=== PATIENT | male | born 1960 | race African-American/Black ===

== ENCOUNTER 2018-03-27 04:09 | Inpatient (IN) | payer MEDICAID ==
[~2018-03-27] VITALS: Ht 182.9 cm; Wt 107.5 kg
[~2018-03-27 04:09] MED LIST: CARDIZEM; DIGOXIN; FURO-151; VIC
[2018-03-27] MEDS ORDERED: DILTIAZEM HCL 125 MG in DEXT 5% WATER 100 ML IV ONE (04:45)
[2018-03-27] MEDS ORDERED: DILTIAZEM HCL 5MG/ML 5ML VIAL IV ONE (04:45)
[2018-03-27 05:12] LABS: BASOPHILS % 0.9 % (0.0-2.0); EOSINOPHILS % 3.2 % (0.0-5.0); HEMATOCRIT. 39.3 % (42.0-52.0); HEMOGLOBIN. 12.8 g/dL (14.0-18.0); LYMPHOCYTES % 25.6 % (20.0-50.0); MEAN CORPUSCULAR VOLUME 88.7 fL (80.0-94.0); MEAN PLATELET VOLUME 7.9 fl (7.4-10.4); MONOCYTES % 6.6 % (2.0-8.0); NEUTROPHILS % 63.7 % (40.0-76.0); PLATELET 228 x1000/uL (130-400); RED BLOOD CELL COUNT 4.44 mill/uL (4.7-6.1); RED CELL DISTRIBUTION WIDTH 14.6 % (11.6-14.6)
[2018-03-27] MEDS: DILTIAZEM HCL 125MG in DEXTROSE 5% WATER 125ML IV PRN ×2 (05:13→19:01)
[2018-03-27 05:15] LABS: CHLORIDE 107 mEq/L (98-107)
[2018-03-27] MEDS ORDERED: ONDANSETRON HCL 4MG/2ML INJ IV PRN (09:15)
[2018-03-27] MEDS ORDERED: ACETAMINOPHEN 325MG TABLET PO PRN (09:15)
[2018-03-27] MEDS ORDERED: BENZONATATE 100MG CAPSULE PO PRN (10:15)
[2018-03-27 18:00] VITALS: BP 134/77
[2018-03-27 18:37] VITALS: BP 134/77
[2018-03-27] MEDS: HYDROCODONE/ACETAMINOPHEN 5/325MG TABLET PO PRN (18:47)
[2018-03-27 19:00] VITALS: BP 134/79
[2018-03-27 20:00] VITALS: BP 123/90
[2018-03-27 20:33] LABS: CLARITY URINE CLEAR (CLEAR); COLOR URINE YELLOW (YELLOW); KETONES URINE NEGATIVE (NEGATIVE); LEUKOCYTE ESTERASE URINE NEGATIVE (NEGATIVE); NITRITE URINE NEGATIVE (NEGATIVE); OCCULT BLOOD URINE NEGATIVE (NEGATIVE); PH URINE 6.5 (4.5-8.0); PROTEIN URINE NEGATIVE (NEGATIVE); SPECIFIC GRAVITY URINE 1.008 (1.005-1.030)
[2018-03-27 21:03] LABS: *AMPHETAMINES SCREEN URINE PRESUMTIVE POSITIVE (NEGATIVE); *BARBITURATES SCREEN URINE NEGATIVE (NEGATIVE)
[2018-03-27 21:04] LABS: *BENZODIAZEPINES SCREEN URINE NEGATIVE (NEGATIVE); *COCAINE SCREEN URINE NEGATIVE (NEGATIVE); CANNABINOID URINE SCREEN PRESUMTIVE POSITIVE (NEGATIVE); METHADONE URINE SCREEN NEGATIVE (NEGATIVE); OPIATES URINE SCREEN NEGATIVE (NEGATIVE); PHENCYCLIDINE URINE SCREEN PRESUMTIVE POSITIVE (NEGATIVE)
[2018-03-27 22:00] VITALS: BP 156/82
[2018-03-28] VITALS (16 sets, daily range): BP systolic 101–147; BP diastolic 33–95
[2018-03-28] MEDS: DILTIAZEM HCL 125MG in DEXTROSE 5% WATER 125ML IV PRN (04:13)
[2018-03-28 07:15] LABS: BASOPHILS % 0.5 % (0.0-2.0); EOSINOPHILS % 2.6 % (0.0-5.0); HEMATOCRIT. 39.4 % (42.0-52.0); HEMOGLOBIN. 13.1 g/dL (14.0-18.0); LYMPHOCYTES % 16.7 % (20.0-50.0); MEAN CORPUSCULAR HEMOGLOBIN 29.4 pg (28.0-32.0); MEAN CORPUSCULAR VOLUME 88.7 fL (80.0-94.0); MEAN PLATELET VOLUME 8.5 fl (7.4-10.4); MONOCYTES % 7.5 % (2.0-8.0); NEUTROPHILS % 72.7 % (40.0-76.0); PLATELET 216 x1000/uL (130-400); RED BLOOD CELL COUNT 4.44 mill/uL (4.7-6.1); RED CELL DISTRIBUTION WIDTH 14.5 % (11.6-14.6)
[2018-03-28 07:18] LABS: CHLORIDE 104 mEq/L (98-107)
[2018-03-28] MEDS ORDERED: FUROSEMIDE 40MG/4ML VIAL IVP NR (11:00)
[2018-03-28] MEDS ORDERED: ENOXAPARIN 30MG/0.3ML SYR SUBCUT SCH (11:36)
[2018-03-28] MEDS ORDERED: DILTIAZEM HCL 125 MG in DEXT 5% WATER 100 ML IV SCH (12:00)
[2018-03-28] MEDS: HYDROCODONE/ACETAMINOPHEN 5/325MG TABLET PO PRN ×2 (12:15→21:29)
[2018-03-28] MEDS: AMIODARONE HCL 200 MG TABLET PO SCH ×2 (12:15→16:37)
[2018-03-28] MEDS ORDERED: ENOXAPARIN 100MG/ML SYR SUBCUT NR (13:30)
[2018-03-28] MEDS: DILTIAZEM HCL 60MG TABLET PO SCH ×2 (13:55→21:23)
[2018-03-28] MEDS: DILTIAZEM HCL 125 MG in DEXT 5% WATER 100 ML IV SCH (20:00)
[2018-03-28] MEDS ORDERED: ENOXAPARIN 100MG/ML SYR SUBCUT SCH (21:00)
[2018-03-29] VITALS (12 sets, daily range): BP systolic 102–135; BP diastolic 52–92
[2018-03-29] MEDS ORDERED: ENOXAPARIN 120MG/0.8ML SYR SUBCUT SCH (02:00)
[2018-03-29] MEDS: DILTIAZEM HCL 125 MG in DEXT 5% WATER 100 ML IV SCH ×3 (04:58→21:00)
[2018-03-29] MEDS: DILTIAZEM HCL 60MG TABLET PO SCH ×2 (06:00→13:26)
[2018-03-29] MEDS: ENOXAPARIN 120MG/0.8ML SYR SUBCUT SCH ×2 (06:17→17:41)
[2018-03-29 07:05] LABS: BASOPHILS % 0.4 % (0.0-2.0); EOSINOPHILS % 3.5 % (0.0-5.0); HEMOGLOBIN. 13.1 g/dL (14.0-18.0); LYMPHOCYTES % 24.1 % (20.0-50.0); MEAN CORPUSCULAR HEMOGLOBIN 29.3 pg (28.0-32.0); MEAN CORPUSCULAR VOLUME 89.2 fL (80.0-94.0); MEAN PLATELET VOLUME 8.7 fl (7.4-10.4); MONOCYTES % 8.4 % (2.0-8.0); NEUTROPHILS % 63.6 % (40.0-76.0); PLATELET 228 x1000/uL (130-400); RED BLOOD CELL COUNT 4.49 mill/uL (4.7-6.1); RED CELL DISTRIBUTION WIDTH 14.7 % (11.6-14.6)
[2018-03-29 07:26] LABS: CHLORIDE 102 mEq/L (98-107)
[2018-03-29] MEDS: AMIODARONE HCL 200 MG TABLET PO SCH ×3 (07:55→17:42)
[2018-03-29] MEDS: HYDROCODONE/ACETAMINOPHEN 5/325MG TABLET PO PRN ×2 (13:27→19:58)
[2018-03-29] MEDS: FUROSEMIDE 40MG TABLET PO SCH (17:41)
[2018-03-29] MEDS: DILTIAZEM HCL 90MG TABLET PO SCH (21:54)
[2018-03-30] VITALS (9 sets, daily range): BP systolic 92–132; BP diastolic 39–87
[2018-03-30] MEDS: DILTIAZEM HCL 125 MG in DEXT 5% WATER 100 ML IV SCH (06:06)
[2018-03-30] MEDS: DILTIAZEM HCL 90MG TABLET PO SCH (06:06)
[2018-03-30] MEDS: ENOXAPARIN 120MG/0.8ML SYR SUBCUT SCH (06:07)
[2018-03-30] MEDS: AMIODARONE HCL 200 MG TABLET PO SCH (07:50)
[2018-03-30] MEDS: FUROSEMIDE 40MG TABLET PO SCH (08:00)
[2018-03-30] MEDS ORDERED: APIXABAN 5 MG TABLET PO SCH (10:45)
[2018-03-30] MEDS ORDERED: DILTIAZEM HCL 120MG CAPSULE CD 24HR PO SCH (10:45)
[2018-03-30] MEDS ORDERED: AMIODARONE HCL 200 MG TABLET PO SCH (12:20)
== END 2018-03-30 16:17 | disposition home or self-care (01) | DRG 194 ==
LOC: ER 04:09 → ENRESERV 15:26 → 3WST 17:49
PROVIDERS: ADMIT Internal Medicine; ATTEND Internal Medicine
DX: I11.0 Hypertensive heart disease with heart failure (principal); I42.9 Cardiomyopathy, unspecified; I48.92 Unspecified atrial flutter; I48.91 Unspecified atrial fibrillation; I50.23 Acute on chronic systolic (congestive) heart failure; E66.9 Obesity, unspecified; F15.90 Other stimulant use, unspecified, uncomplicated; F17.200 Nicotine dependence, unspecified, uncomplicated; Z91.19 Patient's noncompliance with other medical treatment and regimen; Z68.32 Body mass index [BMI] 32.0-32.9, adult; Z88.6 Allergy status to analgesic agent
CPT/HCPCS: 36415; 71045; 80048; 80061; 80305; 83036; 83880; 84443; 84484; 93005; 93306; 93970; 96365; 96375; 99291; J1650; J1940; J3490; J7060

== ENCOUNTER 2018-04-25 17:26 | Emergency (ER) | payer MEDICAID ==
[~2018-04-25] VITALS: Ht 182.9 cm; Wt 104.0 kg
[~2018-04-25 17:26] MED LIST changes: -DIGOXIN
[2018-04-25 17:29] VITALS: BP 123/72
== END 2018-04-25 18:05 | disposition left against medical advice (07) ==
LOC: ER 17:26
DX: F16.10 Hallucinogen abuse, uncomplicated (principal); F12.10 Cannabis abuse, uncomplicated; I48.91 Unspecified atrial fibrillation; I11.0 Hypertensive heart disease with heart failure; I50.9 Heart failure, unspecified; E66.9 Obesity, unspecified; Z68.31 Body mass index [BMI] 31.0-31.9, adult; F17.210 Nicotine dependence, cigarettes, uncomplicated
CPT/HCPCS: 99283

== ENCOUNTER 2018-04-25 20:57 | Emergency (ER) | payer MEDICAID ==
[~2018-04-25] VITALS: Ht 180.3 cm; Wt 118.0 kg
[2018-04-25 21:17] VITALS: BP 122/86
== END 2018-04-25 23:34 | disposition left against medical advice (07) ==
LOC: ER 20:57
DX: F16.188 Hallucinogen abuse with other hallucinogen-induced disorder (principal); F12.188 Cannabis abuse with other cannabis-induced disorder; M25.512 Pain in left shoulder; F17.210 Nicotine dependence, cigarettes, uncomplicated
CPT/HCPCS: 99284

== ENCOUNTER 2018-05-04 17:41 | Emergency (ER) | payer MEDICAID ==
[~2018-05-04] VITALS: Ht 182.9 cm; Wt 120.0 kg
[2018-05-04 17:48] VITALS: BP 129/70
== END 2018-05-04 19:45 | disposition left against medical advice (07) ==
LOC: ER 17:41
DX: Z53.21 Procedure and treatment not carried out due to patient leaving prior to being seen by health care provider (principal)

== ENCOUNTER 2018-05-14 19:56 | Emergency (ER) | payer MEDICAID ==
[~2018-05-14] VITALS: Ht 182.9 cm; Wt 97.0 kg
[2018-05-14 20:04] VITALS: BP 143/87
[2018-05-14] MEDS ORDERED: ACETAMINOPHEN 325MG TABLET PO ONE (20:30)
== END 2018-05-14 20:46 | disposition home or self-care (01) ==
LOC: ER 19:56
DX: M25.512 Pain in left shoulder (principal)
CPT/HCPCS: 73030; 99283

== ENCOUNTER 2018-05-22 17:13 | Emergency (ER) | payer MEDICAID ==
[~2018-05-22] VITALS: Ht 177.8 cm; Wt 80.0 kg
[2018-05-22 17:18] VITALS: BP 142/109
== END 2018-05-22 17:34 | disposition left against medical advice (07) ==
LOC: ER 17:26
DX: R41.82 Altered mental status, unspecified (principal); Z53.21 Procedure and treatment not carried out due to patient leaving prior to being seen by health care provider

== ENCOUNTER 2018-07-27 07:44 | Inpatient (IN) | payer MEDICAID ==
[~2018-07-27] VITALS: Ht 177.8 cm; Wt 114.1 kg
[2018-07-27] MEDS ORDERED: NITROGLYCERIN 0.4MG TABLET SL SL PRN (08:45)
[2018-07-27] MEDS ORDERED: CLOPIDOGREL 75MG TABLET PO ONE (08:45)
[2018-07-27 08:58] LABS: BASOPHILS % 0.3 % (0.0-2.0); EOSINOPHILS % 2.5 % (0.0-5.0); HEMOGLOBIN. 13.7 g/dL (14.0-18.0); LYMPHOCYTES % 18.8 % (20.0-50.0); MEAN CORPUSCULAR HEMOGLOBIN 29.2 pg (28.0-32.0); MEAN CORPUSCULAR VOLUME 89.3 fL (80.0-94.0); MEAN PLATELET VOLUME 9.5 fl (7.4-10.4); MONOCYTES % 7.7 % (2.0-8.0); NEUTROPHILS % 70.7 % (40.0-76.0); PLATELET 259 x1000/uL (130-400); RED CELL DISTRIBUTION WIDTH 15.7 % (11.6-14.6)
[2018-07-27] MEDS ORDERED: DILTIAZEM HCL 5MG/ML 5ML VIAL IV ONE (09:00)
[2018-07-27 09:22] LABS: D-DIMER 1.68 mg/L FEU (<0.50); INR 1.1; PARTIAL THROMBOPLASTIN TIME 30.9 sec (23.4-31.0); PROTHROMBIN TIME 11.6 sec (9.6-11.0)
[2018-07-27 09:28] LABS: CHLORIDE 111 mEq/L (98-107)
[2018-07-27 09:32] LABS: DIGOXIN < 0.1 ng/mL (0.9-2.0); ETHANOL BLOOD 12 mg/dL
[2018-07-27] MEDS ORDERED: IPRATROPIUM/ALBUTEROL 0.5-3(2.5)MG/3ML NEB INH PRN (11:00)
[2018-07-27] MEDS ORDERED: FUROSEMIDE 40MG/4ML VIAL IVP ONE (11:00)
[2018-07-27] MEDS ORDERED: CLONIDINE 0.1MG TABLET PO PRN (11:00)
[2018-07-27] MEDS ORDERED: ONDANSETRON HCL 4MG/2ML INJ IV PRN (11:00)
[2018-07-27] MEDS ORDERED: LORAZEPAM 2MG/ML CPJ IV PRN (11:00)
[2018-07-27] MEDS ORDERED: MAGNESIUM/ALUMINUM HYDROXIDE/SIMETHICONE 30ML UDC PO PRN (11:00)
[2018-07-27] MEDS ORDERED: NA PHOS,M-B/NA PHOS,DI-BA ENEMA 118ML PR PRN (11:00)
[2018-07-27] MEDS ORDERED: GUAIFENESIN 200MG/10ML SUGAR FREE UDC PO PRN (11:00)
[2018-07-27] MEDS ORDERED: MORPHINE SULFATE 4 MG/ML CPJ (NOT FOR IM USE) IV PRN (11:00)
[2018-07-27] MEDS ORDERED: ACETAMINOPHEN 325MG TABLET PO PRN (11:00)
[2018-07-27] MEDS ORDERED: DIPHENHYDRAMINE 50MG/ML VIAL IV PRN (11:00)
[2018-07-27] MEDS ORDERED: IOHEXOL-350 100 ML BOTTLE ONE (12:04)
[2018-07-27 13:40] VITALS: BP 147/116
[2018-07-27 14:00] VITALS: BP 140/100
[2018-07-27] MEDS ORDERED: DILTIAZEM HCL 5MG/ML 5ML VIAL IV PRN (14:00)
[2018-07-27] MEDS: HYDROCODONE/ACETAMINOPHEN 5/325MG TABLET PO PRN ×2 (14:08→21:25)
[2018-07-27] MEDS: DOCUSATE SODIUM 100MG CAPSULE PO PRN (14:08)
[2018-07-27] MEDS ORDERED: DIGOXIN 500MCG/2ML AMP IV SCH (14:23)
[2018-07-27] MEDS ORDERED: NITROGLYCERIN OINT 1GM/INCH UDPKT TD NR (14:29)
[2018-07-27] MEDS: DILTIAZEM HCL 60MG TABLET PO SCH ×2 (15:13→18:00)
[2018-07-27 15:23] VITALS: BP 140/100
[2018-07-27] MEDS: LOSARTAN POTASSIUM 50 MG TABLET PO SCH (15:28)
[2018-07-27] MEDS: ENOXAPARIN 120MG/0.8ML SYR SUBCUT SCH (15:49)
[2018-07-27] MEDS ORDERED: FUROSEMIDE 40MG/4ML VIAL IV SCH (17:00)
[2018-07-27 17:12] LABS: *AMPHETAMINES SCREEN URINE NEGATIVE (NEGATIVE); *BARBITURATES SCREEN URINE NEGATIVE (NEGATIVE); *BENZODIAZEPINES SCREEN URINE NEGATIVE (NEGATIVE); *COCAINE SCREEN URINE NEGATIVE (NEGATIVE); CANNABINOID URINE SCREEN NEGATIVE (NEGATIVE); OPIATES URINE SCREEN NEGATIVE (NEGATIVE); PHENCYCLIDINE URINE SCREEN PRESUMTIVE POSITIVE (NEGATIVE)
[2018-07-27 17:13] LABS: METHADONE URINE SCREEN NEGATIVE (NEGATIVE)
[2018-07-27 20:22] VITALS: BP 122/93
[2018-07-27] MEDS: FUROSEMIDE 40MG/4ML VIAL IV SCH (20:32)
[2018-07-28 00:21] VITALS: BP 124/91
[2018-07-28 04:00] VITALS: BP 110/75
[2018-07-28 06:37] LABS: BASOPHILS % 0.5 % (0.0-2.0); EOSINOPHILS % 4.6 % (0.0-5.0); HEMATOCRIT. 38.8 % (42.0-52.0); HEMOGLOBIN. 12.8 g/dL (14.0-18.0); LYMPHOCYTES % 27.1 % (20.0-50.0); MEAN CORPUSCULAR HEMOGLOBIN 29.3 pg (28.0-32.0); MEAN CORPUSCULAR VOLUME 88.8 fL (80.0-94.0); MEAN PLATELET VOLUME 8.7 fl (7.4-10.4); MONOCYTES % 7.5 % (2.0-8.0); NEUTROPHILS % 60.3 % (40.0-76.0); PLATELET 203 x1000/uL (130-400); RED BLOOD CELL COUNT 4.36 mill/uL (4.7-6.1); RED CELL DISTRIBUTION WIDTH 15.3 % (11.6-14.6)
[2018-07-28 06:57] LABS: CHLORIDE 109 mEq/L (98-107)
[2018-07-28] MEDS: DILTIAZEM HCL 60MG TABLET PO SCH ×2 (07:03→07:12)
[2018-07-28] MEDS: ENOXAPARIN 120MG/0.8ML SYR SUBCUT SCH ×2 (07:06→17:21)
[2018-07-28 07:11] LABS: LDL CHOLESTEROL 60 mg/dL (5-100)
[2018-07-28 07:12] LABS: HDL CHOLESTEROL 48 mg/dL (40-59); T4 FREE 1.13 ng/dL (0.76-1.46)
[2018-07-28 08:00] VITALS: BP 130/89
[2018-07-28] MEDS: FUROSEMIDE 40MG/4ML VIAL IV SCH ×2 (08:35→17:19)
[2018-07-28] MEDS: LOSARTAN POTASSIUM 50 MG TABLET PO SCH (08:35)
[2018-07-28] MEDS: HYDROCODONE/ACETAMINOPHEN 5/325MG TABLET PO PRN ×3 (10:09→22:34)
[2018-07-28] MEDS: DOCUSATE SODIUM 100MG CAPSULE PO PRN ×2 (10:12→18:03)
[2018-07-28 12:00] VITALS: BP 141/96
[2018-07-28] MEDS: DILTIAZEM HCL 90MG TABLET PO SCH ×2 (13:00→17:20)
[2018-07-28] MEDS: POTASSIUM CHLORIDE 20MEQ TABLET SR PO SCH (13:16)
[2018-07-28 16:00] VITALS: BP 119/87
[2018-07-28] MEDS ORDERED: DIGOXIN 500MCG/2ML AMP IV SCH (18:00)
[2018-07-28 20:12] VITALS: BP 117/72
[2018-07-29] VITALS: BP 103/64
[2018-07-29 04:00] VITALS: BP 107/83
[2018-07-29] MEDS: DILTIAZEM HCL 90MG TABLET PO SCH ×2 (06:00)
[2018-07-29] MEDS: ENOXAPARIN 120MG/0.8ML SYR SUBCUT SCH (06:01)
[2018-07-29 06:41] LABS: BASOPHILS % 0.5 % (0.0-2.0); EOSINOPHILS % 4.6 % (0.0-5.0); HEMATOCRIT. 37.9 % (42.0-52.0); HEMOGLOBIN. 12.6 g/dL (14.0-18.0); MEAN CORPUSCULAR HEMOGLOBIN 29.5 pg (28.0-32.0); MEAN CORPUSCULAR VOLUME 88.6 fL (80.0-94.0); MEAN PLATELET VOLUME 8.5 fl (7.4-10.4); MONOCYTES % 12.7 % (2.0-8.0); NEUTROPHILS % 52.2 % (40.0-76.0); PLATELET 223 x1000/uL (130-400); RED BLOOD CELL COUNT 4.28 mill/uL (4.7-6.1); RED CELL DISTRIBUTION WIDTH 15.2 % (11.6-14.6)
[2018-07-29 07:52] LABS: CHLORIDE 103 mEq/L (98-107)
[2018-07-29 08:00] VITALS: BP 115/80
[2018-07-29] MEDS: FUROSEMIDE 40MG/4ML VIAL IV SCH (08:19)
[2018-07-29] MEDS: LOSARTAN POTASSIUM 50 MG TABLET PO SCH (08:19)
[2018-07-29] MEDS: POTASSIUM CHLORIDE 20MEQ TABLET SR PO SCH (08:19)
[2018-07-29 10:17] VITALS: BP 18/115
== END 2018-07-29 10:50 | disposition home or self-care (01) | DRG 194 ==
LOC: ER 07:44 → ENRESERV 09:58 → 6WST 12:12 → EDBEDREQ 12:15
PROVIDERS: ADMIT Internal Medicine; ATTEND Internal Medicine
DX: I11.0 Hypertensive heart disease with heart failure (principal); J96.20 Acute and chronic respiratory failure, unspecified whether with hypoxia or hypercapnia; I42.9 Cardiomyopathy, unspecified; I50.23 Acute on chronic systolic (congestive) heart failure; F17.200 Nicotine dependence, unspecified, uncomplicated; R74.0 Nonspecific elevation of levels of transaminase and lactic acid dehydrogenase [LDH]; F19.10 Other psychoactive substance abuse, uncomplicated; I48.91 Unspecified atrial fibrillation; I48.92 Unspecified atrial flutter; Z91.19 Patient's noncompliance with other medical treatment and regimen; Z82.49 Family history of ischemic heart disease and other diseases of the circulatory system; Z88.6 Allergy status to analgesic agent; Z79.899 Other long term (current) drug therapy
CPT/HCPCS: 36415; 71045; 71275; 80048; 80061; 80162; 80305; 80320; 83735; 83880; 84439; 84443; 84484; 85379; 93005; 93306; 96374; 99285; J1160; J1650; J1940; J3490; Q9967; G0480

== ENCOUNTER 2018-09-07 06:46 | Inpatient (IN) | payer MEDICAID ==
[~2018-09-07] VITALS: Ht 177.8 cm; Wt 109.5 kg
[2018-09-07 07:34] LABS: CHLORIDE 110 mEq/L (98-107)
[2018-09-07] MEDS ORDERED: ENALAPRIL 2.5MG/2ML VIAL 2ML IV ONE (08:45)
[2018-09-07] MEDS ORDERED: FUROSEMIDE 40MG/4ML VIAL IVP ONE (08:45)
[2018-09-07 09:20] LABS: BASOPHILS % 0.6 % (0.0-2.0); EOSINOPHILS % 3.5 % (0.0-5.0); HEMATOCRIT. 40.6 % (42.0-52.0); HEMOGLOBIN. 13.2 g/dL (14.0-18.0); LYMPHOCYTES % 29.3 % (20.0-50.0); MEAN CORPUSCULAR HEMOGLOBIN 28.9 pg (28.0-32.0); MEAN PLATELET VOLUME 10.1 fl (7.4-10.4); MONOCYTES % 9.1 % (2.0-8.0); NEUTROPHILS % 57.5 % (40.0-76.0); PLATELET 113 x1000/uL (130-400); RED BLOOD CELL COUNT 4.56 mill/uL (4.7-6.1); RED CELL DISTRIBUTION WIDTH 15.3 % (11.6-14.6)
[2018-09-07] MEDS ORDERED: ONDANSETRON HCL 4MG/2ML INJ IV PRN (11:30)
[2018-09-07] MEDS ORDERED: DOCUSATE SODIUM 100MG CAPSULE PO PRN (11:30)
[2018-09-07] MEDS ORDERED: CLONIDINE 0.1MG TABLET PO PRN ×2 (11:30→14:00)
[2018-09-07] MEDS ORDERED: GUAIFENESIN 200MG/10ML SUGAR FREE UDC PO PRN (11:30)
[2018-09-07] MEDS ORDERED: ENOXAPARIN 40MG/0.4ML SYR SUBCUT SCH (11:30)
[2018-09-07] MEDS ORDERED: IPRATROPIUM/ALBUTEROL 0.5-3(2.5)MG/3ML NEB INH PRN (11:30)
[2018-09-07] MEDS ORDERED: MAGNESIUM/ALUMINUM HYDROXIDE/SIMETHICONE 30ML UDC PO PRN (11:30)
[2018-09-07] MEDS ORDERED: ACETAMINOPHEN 325MG TABLET PO PRN (11:30)
[2018-09-07 12:17] LABS: PHOSPHORUS 3.5 mg/dL (2.5-4.9)
[2018-09-07 13:38] VITALS: BP 140/107
[2018-09-07] MEDS ORDERED: CLONIDINE 0.2MG TABLET PO PRN (14:00)
[2018-09-07] MEDS ORDERED: DILTIAZEM HCL 5MG/ML 5ML VIAL IV PRN (14:00)
[2018-09-07] MEDS: POTASSIUM CHLORIDE 20MEQ TABLET SR PO SCH ×2 (14:34→21:33)
[2018-09-07] MEDS: LOSARTAN POTASSIUM 25 MG TABLET PO SCH ×2 (14:34→21:33)
[2018-09-07] MEDS: HYDROCODONE/ACETAMINOPHEN 5/325MG TABLET PO PRN ×2 (14:41→21:33)
[2018-09-07 16:00] VITALS: BP 154/99
[2018-09-07 16:33] VITALS: BP 142/110
[2018-09-07 16:34] LABS: INR 1.2
[2018-09-07 17:54] LABS: CREATINE KINASE MB FRACTION 3.1 ng/mL (0.5-3.6)
[2018-09-07] MEDS: DILTIAZEM HCL 60MG TABLET PO SCH (18:53)
[2018-09-07] MEDS: FUROSEMIDE 40MG/4ML VIAL IV SCH (18:54)
[2018-09-07] MEDS: ENOXAPARIN 100MG/ML SYR SUBCUT SCH (18:56)
[2018-09-07 20:00] VITALS: BP 107/75
[2018-09-07 20:17] LABS: *AMPHETAMINES SCREEN URINE PRESUMTIVE POSITIVE (NEGATIVE); *BARBITURATES SCREEN URINE NEGATIVE (NEGATIVE); *BENZODIAZEPINES SCREEN URINE NEGATIVE (NEGATIVE); *COCAINE SCREEN URINE PRESUMTIVE POSITIVE (NEGATIVE); METHADONE URINE SCREEN NEGATIVE (NEGATIVE)
[2018-09-07 20:18] LABS: CANNABINOID URINE SCREEN PRESUMTIVE POSITIVE (NEGATIVE); OPIATES URINE SCREEN PRESUMTIVE POSITIVE (NEGATIVE); PHENCYCLIDINE URINE SCREEN PRESUMTIVE POSITIVE (NEGATIVE)
[2018-09-07] MEDS ORDERED: ENOXAPARIN 30MG/0.3ML SYR SUBCUT SCH (21:00)
[2018-09-08] VITALS: BP 114/75
[2018-09-08] MEDS: DILTIAZEM HCL 60MG TABLET PO SCH ×2 (00:02→06:13)
[2018-09-08 04:00] VITALS: BP 121/77
[2018-09-08] MEDS: HYDROCODONE/ACETAMINOPHEN 5/325MG TABLET PO PRN ×3 (04:10→22:31)
[2018-09-08] MEDS: FUROSEMIDE 40MG/4ML VIAL IV SCH ×2 (06:16→17:22)
[2018-09-08 07:02] LABS: CHLORIDE 106 mEq/L (98-107)
[2018-09-08 07:03] LABS: BASOPHILS % 0.7 % (0.0-2.0); HEMATOCRIT. 38.6 % (42.0-52.0); HEMOGLOBIN. 12.9 g/dL (14.0-18.0); LYMPHOCYTES % 34.5 % (20.0-50.0); MEAN CORPUSCULAR HEMOGLOBIN 29.4 pg (28.0-32.0); MEAN CORPUSCULAR VOLUME 87.9 fL (80.0-94.0); MEAN PLATELET VOLUME 9.6 fl (7.4-10.4); MONOCYTES % 8.4 % (2.0-8.0); NEUTROPHILS % 52.4 % (40.0-76.0); PLATELET 138 x1000/uL (130-400); RED BLOOD CELL COUNT 4.39 mill/uL (4.7-6.1); RED CELL DISTRIBUTION WIDTH 15.1 % (11.6-14.6)
[2018-09-08 07:18] LABS: CREATINE KINASE 157 IU/L (39-308); CREATINE KINASE MB FRACTION 1.8 ng/mL (0.5-3.6)
[2018-09-08 07:20] LABS: LDL CHOLESTEROL 70 mg/dL (5-100)
[2018-09-08 07:25] LABS: HDL CHOLESTEROL 60 mg/dL (40-59)
[2018-09-08 08:16] VITALS: BP 110/69
[2018-09-08] MEDS: LOSARTAN POTASSIUM 25 MG TABLET PO SCH ×2 (08:25→21:39)
[2018-09-08] MEDS: POTASSIUM CHLORIDE 20MEQ TABLET SR PO SCH ×2 (08:25→21:39)
[2018-09-08] MEDS: ENOXAPARIN 100MG/ML SYR SUBCUT SCH ×2 (08:27→21:40)
[2018-09-08] MEDS ORDERED: FUROSEMIDE 40MG/4ML VIAL IV SCH (09:00)
[2018-09-08] MEDS ORDERED: POTASSIUM CHLORIDE 20MEQ TABLET SR PO NR (11:45)
[2018-09-08 12:00] VITALS: BP 106/78
[2018-09-08] MEDS: DILTIAZEM HCL 90MG TABLET PO SCH ×2 (12:00→17:22)
[2018-09-08 16:00] VITALS: BP 137/90
[2018-09-08 20:00] VITALS: BP 126/89
[2018-09-09] VITALS: BP 122/84
[2018-09-09] MEDS: DILTIAZEM HCL 90MG TABLET PO SCH ×5 (00:48→23:56)
[2018-09-09 04:00] VITALS: BP 97/64
[2018-09-09 06:31] VITALS: BP 131/87
[2018-09-09] MEDS: FUROSEMIDE 40MG/4ML VIAL IV SCH ×2 (06:33→17:35)
[2018-09-09 08:00] VITALS: BP 114/64
[2018-09-09] MEDS: LOSARTAN POTASSIUM 25 MG TABLET PO SCH ×2 (09:17→21:11)
[2018-09-09] MEDS: POTASSIUM CHLORIDE 20MEQ TABLET SR PO SCH ×2 (09:17→21:11)
[2018-09-09] MEDS: ENOXAPARIN 100MG/ML SYR SUBCUT SCH (09:19)
[2018-09-09 11:51] LABS: BASOPHILS % 0.8 % (0.0-2.0); EOSINOPHILS % 4.1 % (0.0-5.0); HEMATOCRIT. 41.1 % (42.0-52.0); HEMOGLOBIN. 13.4 g/dL (14.0-18.0); MEAN CORPUSCULAR VOLUME 88.9 fL (80.0-94.0); MONOCYTES % 9.3 % (2.0-8.0); NEUTROPHILS % 59.8 % (40.0-76.0); RED BLOOD CELL COUNT 4.63 mill/uL (4.7-6.1); RED CELL DISTRIBUTION WIDTH 15.1 % (11.6-14.6)
[2018-09-09 12:01] LABS: CHLORIDE 104 mEq/L (98-107)
[2018-09-09 12:53] LABS: PLATELET 130 x1000/uL (130-400)
[2018-09-09] MEDS ORDERED: ENOXAPARIN 120MG/0.8ML SYR SUBCUT SCH (15:26)
[2018-09-09 16:00] VITALS: BP 108/82
[2018-09-09 20:00] VITALS: BP 132/89
[2018-09-09] MEDS: ENOXAPARIN 120MG/0.8ML SYR SUBCUT SCH ×2 (21:00→21:11)
[2018-09-09] MEDS: HYDROCODONE/ACETAMINOPHEN 5/325MG TABLET PO PRN (21:12)
[2018-09-10] VITALS: BP 105/76
[2018-09-10 04:00] VITALS: BP 122/85
[2018-09-10] MEDS: DILTIAZEM HCL 90MG TABLET PO SCH ×2 (06:00→12:00)
[2018-09-10] MEDS: FUROSEMIDE 40MG/4ML VIAL IV SCH (06:37)
[2018-09-10 08:00] VITALS: BP 108/65
[2018-09-10] MEDS: ENOXAPARIN 120MG/0.8ML SYR SUBCUT SCH ×2 (09:00→09:33)
[2018-09-10] MEDS: LOSARTAN POTASSIUM 25 MG TABLET PO SCH (09:00)
[2018-09-10] MEDS: POTASSIUM CHLORIDE 20MEQ TABLET SR PO SCH (09:32)
[2018-09-10] MEDS: HYDROCODONE/ACETAMINOPHEN 5/325MG TABLET PO PRN (11:30)
[2018-09-10 12:00] VITALS: BP 111/75
[2018-09-10 14:08] VITALS: BP 111/76
[2018-09-10 14:11] VITALS: BP 111/76
== END 2018-09-10 14:30 | disposition home or self-care (01) | DRG 194 ==
LOC: ER 06:46 → 5WST 10:16 → EDBEDREQ 10:22 → EDBEDREQTM 10:22 → ENRESERV 12:26
PROVIDERS: ADMIT Internal Medicine; ATTEND Internal Medicine
DX: I11.0 Hypertensive heart disease with heart failure (principal); D69.6 Thrombocytopenia, unspecified; E87.8 Other disorders of electrolyte and fluid balance, not elsewhere classified; I27.20 Pulmonary hypertension, unspecified; I08.1 Rheumatic disorders of both mitral and tricuspid valves; I48.92 Unspecified atrial flutter; I50.33 Acute on chronic diastolic (congestive) heart failure; D64.9 Anemia, unspecified; I42.0 Dilated cardiomyopathy; F10.10 Alcohol abuse, uncomplicated; F12.10 Cannabis abuse, uncomplicated; F14.10 Cocaine abuse, uncomplicated; F17.200 Nicotine dependence, unspecified, uncomplicated; I50.23 Acute on chronic systolic (congestive) heart failure; Z91.19 Patient's noncompliance with other medical treatment and regimen; Z88.6 Allergy status to analgesic agent; Z68.34 Body mass index [BMI] 34.0-34.9, adult
CPT/HCPCS: 36415; 71045; 80048; 80061; 80305; 82550; 82553; 83735; 83880; 84100; 84443; 84484; 85379; 93005; 93970; 96374; 99285; J1650; J1940; J3490

== ENCOUNTER 2018-10-24 08:42 | Inpatient (IN) | payer MEDICAID ==
[~2018-10-24] VITALS: Ht 177.8 cm; Wt 104.3 kg
[~2018-10-24 08:42] MED LIST changes: -CARDIZEM
[2018-10-24] MEDS ORDERED: ALBUTEROL (0.083%) 2.5MG/3ML NEB HHN STA (09:03)
[2018-10-24] MEDS ORDERED: IPRATROPIUM BROMIDE (0.02%) 0.5MG/2.5ML NEB HHN STA (09:03)
[2018-10-24] MEDS ORDERED: METHYLPREDNISOLONE SOD SUCC 125 MG/2 ML VIAL IV STA (09:03)
[2018-10-24 09:27] LABS: CHLORIDE 104 mEq/L (98-107)
[2018-10-24 09:30] LABS: BASOPHILS % 0.5 % (0.0-2.0); EOSINOPHILS % 1.5 % (0.0-5.0); HEMATOCRIT. 38.5 % (42.0-52.0); HEMOGLOBIN. 12.8 g/dL (14.0-18.0); LYMPHOCYTES % 11.7 % (20.0-50.0); MEAN CORPUSCULAR HEMOGLOBIN 29.1 pg (28.0-32.0); MEAN CORPUSCULAR VOLUME 87.3 fL (80.0-94.0); MEAN PLATELET VOLUME 8.5 fl (7.4-10.4); MONOCYTES % 5.5 % (2.0-8.0); NEUTROPHILS % 80.8 % (40.0-76.0); PLATELET 190 x1000/uL (130-400); RED BLOOD CELL COUNT 4.41 mill/uL (4.7-6.1); RED CELL DISTRIBUTION WIDTH 15.9 % (11.6-14.6)
[2018-10-24] MEDS ORDERED: DILTIAZEM HCL 5MG/ML 5ML VIAL IV ONE (09:30)
[2018-10-24] MEDS ORDERED: DILTIAZEM HCL 60MG TABLET PO ONE (10:45)
[2018-10-24 12:00] VITALS: BP 130/96
[2018-10-24] MEDS ORDERED: ONDANSETRON HCL 4MG/2ML INJ IV PRN (13:45)
[2018-10-24] MEDS ORDERED: DIPHENHYDRAMINE 50MG/ML VIAL IV PRN (13:45)
[2018-10-24] MEDS ORDERED: MAGNESIUM/ALUMINUM HYDROXIDE/SIMETHICONE 30ML UDC PO PRN (13:45)
[2018-10-24] MEDS ORDERED: ACETAMINOPHEN 325MG TABLET PO PRN (13:45)
[2018-10-24] MEDS ORDERED: CLONIDINE 0.1MG TABLET PO PRN (13:45)
[2018-10-24] MEDS ORDERED: GUAIFENESIN 200MG/10ML SUGAR FREE UDC PO PRN (13:45)
[2018-10-24] MEDS ORDERED: DOCUSATE SODIUM 100MG CAPSULE PO PRN (13:45)
[2018-10-24] MEDS ORDERED: IPRATROPIUM/ALBUTEROL 0.5-3(2.5)MG/3ML NEB INH PRN (13:45)
[2018-10-24] MEDS ORDERED: DIGO125T82 MT (13:52)
[2018-10-24] MEDS ORDERED: DILT120C88 MT (13:52)
[2018-10-24] MEDS ORDERED: POTA20TA82 MT (13:52)
[2018-10-24] MEDS ORDERED: DEXTROSE 50% WATER 50ML SYRINGE IV PRN (14:00)
[2018-10-24] MEDS ORDERED: ENOXAPARIN 40MG/0.4ML SYR SUBCUT SCH (14:00)
[2018-10-24 14:07] VITALS: BP 130/96
[2018-10-24] MEDS ORDERED: DILTIAZEM HCL 5MG/ML 5ML VIAL IV PRN (15:00)
[2018-10-24] MEDS ORDERED: DIGOXIN 500MCG/2ML AMP IV NR (15:00)
[2018-10-24] MEDS: LOSARTAN POTASSIUM 25 MG TABLET PO SCH (15:00)
[2018-10-24 16:00] VITALS: BP 103/55
[2018-10-24 16:06] LABS: INR 1.1; PROTHROMBIN TIME 11.5 sec (9.6-11.0)
[2018-10-24 16:15] LABS: PHOSPHORUS 1.7 mg/dL (2.5-4.9)
[2018-10-24 16:20] LABS: CREATINE KINASE MB FRACTION 1.6 ng/mL (0.5-3.6)
[2018-10-24] MEDS: FUROSEMIDE 40MG/4ML VIAL IVP SCH ×3 (16:53→17:15)
[2018-10-24] MEDS: ENOXAPARIN 100MG/ML SYR SUBCUT SCH (16:54)
[2018-10-24] MEDS: BLOOD SUGAR DIAGNOSTIC STRIP TEST SCH ×2 (16:56→20:58)
[2018-10-24] MEDS: INSULIN LISPRO 100 UNITS/ML SUBCUT SCH ×2 (18:16→20:58)
[2018-10-24 19:48] LABS: *AMPHETAMINES SCREEN URINE PRESUMTIVE POSITIVE (NEGATIVE); *BARBITURATES SCREEN URINE NEGATIVE (NEGATIVE); *BENZODIAZEPINES SCREEN URINE NEGATIVE (NEGATIVE); *COCAINE SCREEN URINE NEGATIVE (NEGATIVE); METHADONE URINE SCREEN NEGATIVE (NEGATIVE)
[2018-10-24 19:49] LABS: CANNABINOID URINE SCREEN PRESUMTIVE POSITIVE (NEGATIVE); OPIATES URINE SCREEN NEGATIVE (NEGATIVE); PHENCYCLIDINE URINE SCREEN PRESUMTIVE POSITIVE (NEGATIVE)
[2018-10-24 20:00] VITALS: BP 113/73
[2018-10-24] MEDS: HYDRALAZINE HCL 25MG TABLET PO SCH (21:48)
[2018-10-24] MEDS: DILTIAZEM HCL 60MG TABLET PO SCH (21:49)
[2018-10-24 23:48] LABS: CREATINE KINASE MB FRACTION 1.5 ng/mL (0.5-3.6)
[2018-10-25] VITALS: BP 125/77
[2018-10-25 04:00] VITALS: BP 116/75
[2018-10-25] MEDS: HYDRALAZINE HCL 25MG TABLET PO SCH ×2 (06:27→14:51)
[2018-10-25] MEDS: FUROSEMIDE 40MG/4ML VIAL IVP SCH ×2 (06:27→18:07)
[2018-10-25] MEDS: DILTIAZEM HCL 60MG TABLET PO SCH (06:27)
[2018-10-25] MEDS: ENOXAPARIN 100MG/ML SYR SUBCUT SCH ×2 (06:29→18:08)
[2018-10-25] MEDS: INSULIN LISPRO 100 UNITS/ML SUBCUT SCH ×3 (06:42→17:15)
[2018-10-25] MEDS: BLOOD SUGAR DIAGNOSTIC STRIP TEST SCH ×3 (06:42→16:45)
[2018-10-25 08:00] VITALS: BP 123/88
[2018-10-25] MEDS: LOSARTAN POTASSIUM 25 MG TABLET PO SCH (08:32)
[2018-10-25 08:55] LABS: HEMATOCRIT. 41.1 % (42.0-52.0); HEMOGLOBIN. 13.6 g/dL (14.0-18.0); MEAN CORPUSCULAR HEMOGLOBIN 29.1 pg (28.0-32.0); MEAN CORPUSCULAR VOLUME 87.7 fL (80.0-94.0); MEAN PLATELET VOLUME 8.5 fl (7.4-10.4); PLATELET 230 x1000/uL (130-400); RED BLOOD CELL COUNT 4.69 mill/uL (4.7-6.1); RED CELL DISTRIBUTION WIDTH 15.9 % (11.6-14.6)
[2018-10-25 09:11] LABS: CHLORIDE 100 mEq/L (98-107)
[2018-10-25 09:18] LABS: LDL CHOLESTEROL 73 mg/dL (5-100)
[2018-10-25 09:19] LABS: HDL CHOLESTEROL 72 mg/dL (40-59)
[2018-10-25 12:00] VITALS: BP 127/93
[2018-10-25] MEDS ORDERED: POTASSIUM CHLORIDE 20MEQ TABLET SR PO SCH (14:15)
[2018-10-25 14:27] LABS: PLATELET ESTIMATE NORMAL
[2018-10-25] MEDS ORDERED: DILTIAZEM HCL 90MG TABLET PO SCH (18:00)
== END 2018-10-25 18:35 | disposition left against medical advice (07) | DRG 194 ==
LOC: ER 09:09 → 5WST 12:03 → ENRESERV 12:16
PROVIDERS: ADMIT Internal Medicine; ATTEND Internal Medicine
DX: I11.0 Hypertensive heart disease with heart failure (principal); I27.20 Pulmonary hypertension, unspecified; I42.0 Dilated cardiomyopathy; I08.1 Rheumatic disorders of both mitral and tricuspid valves; I50.1 Left ventricular failure, unspecified; J44.9 Chronic obstructive pulmonary disease, unspecified; R73.9 Hyperglycemia, unspecified; D64.9 Anemia, unspecified; I48.92 Unspecified atrial flutter; F19.10 Other psychoactive substance abuse, uncomplicated; F10.10 Alcohol abuse, uncomplicated; F12.90 Cannabis use, unspecified, uncomplicated; F17.210 Nicotine dependence, cigarettes, uncomplicated; I48.91 Unspecified atrial fibrillation; Z88.6 Allergy status to analgesic agent; Z91.19 Patient's noncompliance with other medical treatment and regimen; Z79.1 Long term (current) use of non-steroidal anti-inflammatories (NSAID); Z79.899 Other long term (current) drug therapy
CPT/HCPCS: 36415; 71045; 80048; 80061; 80305; 82550; 82553; 82962; 83735; 83880; 84100; 84443; 84484; 93005; 93970; 94644; 96374; 96375; 97162; 97166; 99285; J1160; J1650; J1815; J1940; J2930; J3490; J7611

== ENCOUNTER 2019-07-21 14:07 | Emergency (ER) | payer MEDICAID ==
[~2019-07-21] VITALS: Ht 177.8 cm; Wt 113.0 kg
[~2019-07-21 14:07] MED LIST changes: +DIGO125T80 MT; +DILT120C88 MT; +POTA20TA82 MT
[2019-07-21] MEDS ORDERED: TETANUS, DIPHTHERIA, PERTUSSIS VAC/PF 0.5ML (>7YR OLD) IM ONE (14:45)
[2019-07-21] MEDS ORDERED: ACETAMINOPHEN 325MG TABLET PO ONE (14:45)
[2019-07-21] MEDS ORDERED: BACITRACIN ZINC OINT UDPKT TOP ONE (15:15)
[2019-07-21] MEDS ORDERED: LIDOCAINE HCL/PF 1% 10 MG/ML 5ML VIAL IJ ONE (15:15)
[2019-07-21 15:54] LABS: CHLORIDE 101 mEq/L (98-107)
[2019-07-21 15:56] LABS: BASOPHILS % 0.7 % (0.0-2.0); EOSINOPHILS % 1.9 % (0.0-5.0); HEMATOCRIT. 49.2 % (42.0-52.0); HEMOGLOBIN. 16.4 g/dL (14.0-18.0); LYMPHOCYTES % 16.2 % (20.0-50.0); MEAN CORPUSCULAR HEMOGLOBIN 28.5 pg (28.0-32.0); MEAN CORPUSCULAR VOLUME 85.5 fL (80.0-94.0); MONOCYTES % 6.8 % (2.0-8.0); NEUTROPHILS % 74.4 % (40.0-76.0); PLATELET 264 x1000/uL (130-400); RED BLOOD CELL COUNT 5.75 mill/uL (4.7-6.1); RED CELL DISTRIBUTION WIDTH 17.7 % (11.6-14.6)
[2019-07-21 15:57] LABS: ETHANOL BLOOD 74 mg/dL
[2019-07-21 19:00] VITALS: BP 145/93
== END 2019-07-21 19:05 | disposition home or self-care (01) ==
LOC: ER 14:16
DX: S01.81XA Laceration without foreign body of other part of head, initial encounter (principal); W18.39XA Other fall on same level, initial encounter; Y93.89 Activity, other specified; Y92.89 Other specified places as the place of occurrence of the external cause; Y99.8 Other external cause status; F10.129 Alcohol abuse with intoxication, unspecified; Y90.3 Blood alcohol level of 60-79 mg/100 ml; I11.0 Hypertensive heart disease with heart failure; I50.9 Heart failure, unspecified; J44.9 Chronic obstructive pulmonary disease, unspecified; F15.10 Other stimulant abuse, uncomplicated; Z79.899 Other long term (current) drug therapy; Z88.6 Allergy status to analgesic agent
CPT/HCPCS: 12016; 36415; 70450; 70486; 80053; 80320; 83880; 84484; 85025; 90471; 90715; 93005; 99285; J3490; G0480

== ENCOUNTER 2019-08-03 10:04 | Emergency (ER) | payer MEDICAID ==
[~2019-08-03] VITALS: Ht 177.8 cm; Wt 116.0 kg
[2019-08-03 10:23] VITALS: BP 129/67
[2019-08-03] MEDS ORDERED: BACITRACIN ZINC OINT UDPKT TOP ONE (11:15)
== END 2019-08-03 11:27 | disposition home or self-care (01) ==
LOC: ER 10:04
DX: S01.81XD Laceration without foreign body of other part of head, subsequent encounter (principal); X58.XXXD Exposure to other specified factors, subsequent encounter; I11.0 Hypertensive heart disease with heart failure; I50.9 Heart failure, unspecified; J44.9 Chronic obstructive pulmonary disease, unspecified; F15.10 Other stimulant abuse, uncomplicated; Z79.899 Other long term (current) drug therapy; Z88.6 Allergy status to analgesic agent
CPT/HCPCS: 99281

== ENCOUNTER 2019-10-24 18:16 | Emergency (ER) | payer MEDICAID ==
[~2019-10-24] VITALS: Ht 185.4 cm; Wt 145.0 kg
[2019-10-24 18:23] VITALS: BP 126/86
== END 2019-10-24 19:08 | disposition left against medical advice (07) ==
LOC: ER 18:16
DX: R41.82 Altered mental status, unspecified (principal); Z53.21 Procedure and treatment not carried out due to patient leaving prior to being seen by health care provider

== ENCOUNTER 2019-10-25 00:51 | Emergency (ER) | payer MEDICAID ==
[~2019-10-25] VITALS: Ht 165.1 cm; Wt 91.0 kg
[2019-10-25] MEDS ORDERED: SODIUM CHLORIDE 0.9% 1,000 ML IV ONE (01:24)
[2019-10-25] MEDS ORDERED: ONDANSETRON HCL 4MG/2ML INJ IV STA (01:24)
[2019-10-25] MEDS ORDERED: OLANZAPINE 10 MG/VIAL IM ONE (01:45)
[2019-10-25 02:16] LABS: CHLORIDE 109 mEq/L (98-107)
[2019-10-25 02:20] LABS: ETHANOL BLOOD 23 mg/dL
[2019-10-25 03:19] LABS: CLARITY URINE CLEAR (CLEAR); COLOR URINE YELLOW (YELLOW); KETONES URINE TRACE (NEGATIVE); LEUKOCYTE ESTERASE URINE NEGATIVE (NEGATIVE); NITRITE URINE NEGATIVE (NEGATIVE); OCCULT BLOOD URINE NEGATIVE (NEGATIVE); PROTEIN URINE TRACE (NEGATIVE); SPECIFIC GRAVITY URINE 1.026 (1.005-1.030); UROBILINOGEN URINE 0.2 E.U./dL (0.2-1.0)
[2019-10-25 03:44] LABS: *AMPHETAMINES SCREEN URINE NEGATIVE (NEGATIVE); *BARBITURATES SCREEN URINE NEGATIVE (NEGATIVE); *BENZODIAZEPINES SCREEN URINE NEGATIVE (NEGATIVE); *COCAINE SCREEN URINE NEGATIVE (NEGATIVE); METHADONE URINE SCREEN NEGATIVE (NEGATIVE)
[2019-10-25 03:45] LABS: CANNABINOID URINE SCREEN NEGATIVE (NEGATIVE); OPIATES URINE SCREEN NEGATIVE (NEGATIVE); PHENCYCLIDINE URINE SCREEN PRESUMTIVE POSITIVE (NEGATIVE)
[2019-10-25 04:04] LABS: BASOPHILS % 0.2 % (0.0-2.0); EOSINOPHILS % 1.3 % (0.0-5.0); HEMATOCRIT. 41.4 % (42.0-52.0); LYMPHOCYTES % 12.4 % (20.0-50.0); MEAN CORPUSCULAR HEMOGLOBIN 30.4 pg (28.0-32.0); MEAN CORPUSCULAR VOLUME 89.8 fL (80.0-94.0); MEAN PLATELET VOLUME 9.7 fl (7.4-10.4); MONOCYTES % 6.3 % (2.0-8.0); NEUTROPHILS % 79.8 % (40.0-76.0); PLATELET 266 x1000/uL (130-400); RED BLOOD CELL COUNT 4.61 mill/uL (4.7-6.1); RED CELL DISTRIBUTION WIDTH 15.5 % (11.6-14.6)
[2019-10-25 07:34] VITALS: BP 109/63
== END 2019-10-25 08:45 | disposition home or self-care (01) ==
LOC: ER 00:51
DX: F16.188 Hallucinogen abuse with other hallucinogen-induced disorder (principal); F15.10 Other stimulant abuse, uncomplicated; R45.1 Restlessness and agitation; Z78.1 Physical restraint status; I11.0 Hypertensive heart disease with heart failure; I50.9 Heart failure, unspecified; J44.9 Chronic obstructive pulmonary disease, unspecified
CPT/HCPCS: 36415; 71045; 80053; 80305; 80320; 81003; 82140; 85025; 96361; 96372; 96374; 99285; J2405; J3490; J7030; G0480

== ENCOUNTER 2020-02-08 21:08 | Emergency (ER) | payer MEDICAID ==
[~2020-02-08] VITALS: Ht 182.9 cm; Wt 137.0 kg
[2020-02-08] MEDS: NALOXONE HCL 1 MG/ML 2ML VIAL IV ONE (23:11)
[2020-02-08] MEDS: ONDANSETRON HCL 4MG/2ML INJ IV ONE (23:11)
[2020-02-08 23:47] LABS: BASOPHILS % 0.4 % (0.0-2.0); EOSINOPHILS % 1.9 % (0.0-5.0); HEMATOCRIT. 41.9 % (42.0-52.0); HEMOGLOBIN. 13.9 g/dL (14.0-18.0); LYMPHOCYTES % 9.8 % (20.0-50.0); MEAN CORPUSCULAR HEMOGLOBIN 29.2 pg (28.0-32.0); MEAN CORPUSCULAR VOLUME 88.1 fL (80.0-94.0); MEAN PLATELET VOLUME 9.1 fl (7.4-10.4); MONOCYTES % 5.7 % (2.0-8.0); NEUTROPHILS % 82.2 % (40.0-76.0); PLATELET 219 x1000/uL (130-400); RED BLOOD CELL COUNT 4.76 mill/uL (4.7-6.1); RED CELL DISTRIBUTION WIDTH 14.5 % (11.6-14.6)
[2020-02-09 00:10] LABS: CHLORIDE 106 mEq/L (98-107); ETHANOL BLOOD < 10 mg/dL
[2020-02-09 02:21] VITALS: BP 129/69
== END 2020-02-09 02:21 | disposition home or self-care (01) ==
LOC: ER 21:08
DX: T65.91XA Toxic effect of unspecified substance, accidental (unintentional), initial encounter (principal); F12.10 Cannabis abuse, uncomplicated; F17.290 Nicotine dependence, other tobacco product, uncomplicated; Z79.899 Other long term (current) drug therapy; Z88.8 Allergy status to other drugs, medicaments and biological substances; Y92.89 Other specified places as the place of occurrence of the external cause
CPT/HCPCS: 36415; 70486; 71045; 80053; 80320; 83880; 84484; 85025; 93005; 96374; 96375; 99285; 99406; J2310; J2405; G0480

== ENCOUNTER 2020-03-03 17:17 | Emergency (ER) | payer MEDICAID ==
[~2020-03-03] VITALS: Ht 177.8 cm; Wt 113.6 kg
[2020-03-03] MEDS ORDERED: METHYLPREDNISOLONE SOD SUCC 125 MG/2 ML VIAL IV ONE (18:15)
[2020-03-03] MEDS ORDERED: CLINDAMYCIN 600 MG in DEXTROSE 5% WATER 50 ML IV ONE (18:15)
[2020-03-03] MEDS ORDERED: CLINDAMYCIN 600MG PREMIX 50 ML IV SCH (18:30)
[2020-03-03 19:37] LABS: BASOPHILS % 0.8 % (0.0-2.0); EOSINOPHILS % 1.3 % (0.0-5.0); HEMATOCRIT. 43.4 % (42.0-52.0); HEMOGLOBIN. 14.7 g/dL (14.0-18.0); LYMPHOCYTES % 8.4 % (20.0-50.0); MEAN CORPUSCULAR HEMOGLOBIN 28.9 pg (28.0-32.0); MEAN CORPUSCULAR VOLUME 85.6 fL (80.0-94.0); MEAN PLATELET VOLUME 9.3 fl (7.4-10.4); MONOCYTES % 7.4 % (2.0-8.0); NEUTROPHILS % 82.1 % (40.0-76.0); PLATELET 389 x1000/uL (130-400); RED BLOOD CELL COUNT 5.07 mill/uL (4.7-6.1); RED CELL DISTRIBUTION WIDTH 15.1 % (11.6-14.6)
[2020-03-03] MEDS ORDERED: ACETAMINOPHEN 325MG TABLET PO ONE (20:45)
[2020-03-03 21:47] LABS: CHLORIDE 99 mEq/L (98-107)
[2020-03-04] MEDS ORDERED: IOHEXOL-300 100 ML BOTTLE ONE (00:28)
[2020-03-04] MEDS ORDERED: PEN G BENZ/PEN G PROCAINE CR 1.2 MMU/2 ML IM ONE (01:45)
[2020-03-04 02:57] VITALS: BP 128/84
== END 2020-03-04 04:28 | disposition home or self-care (01) ==
LOC: ER 17:17
DX: R07.0 Pain in throat (principal)
CPT/HCPCS: 36415; 70491; 80048; 85025; 87430; 87635; 96365; 96366; 96372; 96375; 99285; J0558; J2930; J3490; Q9967; Z7610; J7060

== ENCOUNTER 2020-03-29 19:32 | Emergency (ER) | payer MEDICAID ==
[~2020-03-29] VITALS: Ht 182.9 cm; Wt 134.0 kg
[2020-03-29 21:19] VITALS: BP 128/81
== END 2020-03-29 21:20 | disposition left against medical advice (07) ==
LOC: ER 19:32
DX: R00.0 Tachycardia, unspecified (principal); I50.9 Heart failure, unspecified; Z88.6 Allergy status to analgesic agent
CPT/HCPCS: 99283

== ENCOUNTER 2021-02-03 12:02 | Inpatient (IN) | payer MEDICAID ==
[~2021-02-03] VITALS: Ht 177.8 cm; Wt 119.3 kg
[~2021-02-03 12:02] MED LIST changes: +APIX5TAB PO; +DILT240C91 MT; +FURO-151 MT; +POTA20TA82 PO
[2021-02-03] MEDS ORDERED: ALBUTEROL (0.083%) 2.5MG/3ML NEB HHN STA ×2 (12:13→12:39)
[2021-02-03] MEDS ORDERED: IPRATROPIUM BROMIDE (0.02%) 0.5MG/2.5ML NEB HHN STA (12:13)
[2021-02-03] MEDS ORDERED: FUROSEMIDE 40MG/4ML VIAL IVP ONE (12:45)
[2021-02-03] MEDS ORDERED: DILTIAZEM HCL 5MG/ML 5ML VIAL IV ONE ×2 (12:45→13:30)
[2021-02-03] MEDS ORDERED: LEVOFLOXACIN 500MG PREMIX 100 ML IV ONE (13:45)
[2021-02-03 14:13] LABS: CHLORIDE 110 mEq/L (98-107)
[2021-02-03 14:16] LABS: BASOPHILS % 0.9 % (0.0-2.0); EOSINOPHILS % 3.2 % (0.0-5.0); HEMATOCRIT. 41.4 % (42.0-52.0); HEMOGLOBIN. 13.8 g/dL (14.0-18.0); LYMPHOCYTES % 33.7 % (20.0-50.0); MEAN CORPUSCULAR HEMOGLOBIN 29.4 pg (28.0-32.0); MEAN CORPUSCULAR VOLUME 88.6 fL (80.0-94.0); MEAN PLATELET VOLUME 9.2 fl (7.4-10.4); MONOCYTES % 6.2 % (2.0-8.0); PLATELET 222 x1000/uL (130-400); RED BLOOD CELL COUNT 4.67 mill/uL (4.7-6.1); RED CELL DISTRIBUTION WIDTH 14.8 % (11.6-14.6)
[2021-02-03] MEDS: DILTIAZEM HCL 60MG TABLET PO SCH ×3 (15:00→23:39)
[2021-02-03] MEDS ORDERED: ONDANSETRON HCL 4MG/2ML INJ IV STA (15:39)
[2021-02-03] MEDS ORDERED: MORPHINE SULFATE 4 MG/ML CPJ (NOT FOR IM USE) IV STA (15:39)
[2021-02-03] MEDS ORDERED: MORPHINE SULFATE 2 MG/ML CPJ (NOT FOR IM USE) IV STA (15:57)
[2021-02-03 16:05] LABS: INR 1.1; PROTHROMBIN TIME 11.5 sec (9.6-11.0)
[2021-02-03] MEDS ORDERED: IPRATROPIUM/ALBUTEROL 0.5-3(2.5)MG/3ML NEB HHN PRN (17:00)
[2021-02-03 17:08] LABS: BG BASE EXCESS -3.2 mmol/L (-2.0-2.0); BG CARBOXYHEMOGLOBIN 0.7 % (0.5-1.5); BG DEOXYHEMOGLOBIN 4.8 % (0.0-5.0); BG HCO3 ACT 20.2 mmol/L (22.0-26.0); BG METHEMOGLOBIN 0.3 % (0.0-1.5); BG OXYGEN SATURATION 95.2 % (92.0-98.5); BG OXYHEMOGLOBIN 94.2 % (94.0-97.0); BG PH 7.419 (7.350-7.450); BG PO2 79.5 mmHg (75.0-100.0); BG SAMPLE SITE RIGHT RADIAL; BG TOTAL HEMOGLOBIN 14.3 g/dL (12.0-18.0); BG VENT MODE ROOM AIR
[2021-02-03 17:45] LABS: CLARITY URINE CLEAR (CLEAR); COLOR URINE YELLOW (YELLOW); KETONES URINE NEGATIVE (NEGATIVE); LEUKOCYTE ESTERASE URINE NEGATIVE (NEGATIVE); NITRITE URINE NEGATIVE (NEGATIVE); OCCULT BLOOD URINE NEGATIVE (NEGATIVE); PROTEIN URINE NEGATIVE (NEGATIVE); SPECIFIC GRAVITY URINE 1.007 (1.005-1.030); UROBILINOGEN URINE 0.2 E.U./dL (0.2-1.0)
[2021-02-03 18:08] LABS: METHADONE URINE SCREEN NEGATIVE (NEGATIVE); OPIATES URINE SCREEN NEGATIVE (NEGATIVE)
[2021-02-03 18:09] LABS: *AMPHETAMINES SCREEN URINE PRESUMTIVE POSITIVE (NEGATIVE); *BARBITURATES SCREEN URINE NEGATIVE (NEGATIVE); *BENZODIAZEPINES SCREEN URINE NEGATIVE (NEGATIVE); *COCAINE SCREEN URINE NEGATIVE (NEGATIVE); CANNABINOID URINE SCREEN NEGATIVE (NEGATIVE); PHENCYCLIDINE URINE SCREEN PRESUMTIVE POSITIVE (NEGATIVE)
[2021-02-03] MEDS ORDERED: MAGNESIUM/ALUMINUM HYDROXIDE/SIMETHICONE 30ML UDC PO PRN (20:15)
[2021-02-03] MEDS ORDERED: ACETAMINOPHEN 325MG TABLET PO PRN (20:15)
[2021-02-03] MEDS ORDERED: ENOXAPARIN 40MG/0.4ML SYR SUBCUT SCH (20:15)
[2021-02-03] MEDS ORDERED: DOCUSATE SODIUM 100MG CAPSULE PO PRN (20:15)
[2021-02-03] MEDS ORDERED: CLONIDINE 0.1MG TABLET PO PRN (20:15)
[2021-02-03] MEDS ORDERED: ONDANSETRON HCL 4MG/2ML INJ IV PRN (20:15)
[2021-02-03] MEDS ORDERED: NALOXONE HCL 0.4MG/ML VIAL IV PRN (20:30)
[2021-02-03] MEDS: HYDROCODONE/ACETAMINOPHEN 5/325MG TABLET PO PRN (20:41)
[2021-02-03] MEDS: ENOXAPARIN 30MG/0.3ML SYR SUBCUT SCH (20:46)
[2021-02-03 22:54] VITALS: BP 125/60
[2021-02-04] VITALS (9 sets, daily range): BP systolic 101–140; BP diastolic 51–97
[2021-02-04] MEDS: HYDROCODONE/ACETAMINOPHEN 5/325MG TABLET PO PRN ×2 (00:53→11:38)
[2021-02-04] MEDS: DILTIAZEM HCL 60MG TABLET PO SCH ×2 (05:36→11:39)
[2021-02-04] MEDS: ENOXAPARIN 30MG/0.3ML SYR SUBCUT SCH (09:59)
[2021-02-04] MEDS ORDERED: POTA20TA82 PO (10:42)
[2021-02-04] MEDS ORDERED: DIGO125T80 MT (10:42)
[2021-02-04] MEDS ORDERED: DILT240C91 MT (10:42)
[2021-02-04] MEDS ORDERED: FURO-151 MT (10:42)
[2021-02-04] MEDS ORDERED: APIX5TAB PO (10:42)
== END 2021-02-04 17:57 | disposition home or self-care (01) | DRG 139 ==
LOC: ER 12:02 → EDBEDREQSVC 14:13 → EDBEDREQ 14:13 → 5EST 14:55 → MICUSO 14:55 → UNDOADMIN 14:55 → EDBEDREQ 15:19 → EDBEDREQSVC 15:19
PROVIDERS: ADMIT Internal Medicine; ATTEND Internal Medicine
PROC: 5A09357 Assistance with Respiratory Ventilation, Less than 24 Consecutive Hours, Continuous Positive Airway Pressure (ICD-10-PCS; principal; 2021-02-03)
DX: J18.9 Pneumonia, unspecified organism (principal); J96.21 Acute and chronic respiratory failure with hypoxia; I50.23 Acute on chronic systolic (congestive) heart failure; J44.0 Chronic obstructive pulmonary disease with (acute) lower respiratory infection; I42.0 Dilated cardiomyopathy; I48.20 Chronic atrial fibrillation, unspecified; I11.0 Hypertensive heart disease with heart failure; I48.92 Unspecified atrial flutter; I48.0 Paroxysmal atrial fibrillation; K76.1 Chronic passive congestion of liver; Z20.822 Contact with and (suspected) exposure to COVID-19; E66.9 Obesity, unspecified; F16.10 Hallucinogen abuse, uncomplicated; G47.33 Obstructive sleep apnea (adult) (pediatric); Z60.2 Problems related to living alone; F15.10 Other stimulant abuse, uncomplicated; Z79.01 Long term (current) use of anticoagulants; Z82.49 Family history of ischemic heart disease and other diseases of the circulatory system; Z87.891 Personal history of nicotine dependence; Z91.14 Patient's other noncompliance with medication regimen; Z88.6 Allergy status to analgesic agent; Z79.899 Other long term (current) drug therapy; Z68.37 Body mass index [BMI] 37.0-37.9, adult
CPT/HCPCS: 36415; 36600; 71045; 80053; 80162; 80305; 80320; 81003; 82375; 82805; 83605; 83880; 84145; 84484; 85025; 87426; 93005; 94640; 94660; 99291; J1650; J1940; J1956; J2270; J2405; J3490; G0480

== ENCOUNTER 2021-05-11 04:35 | Emergency (ER) | payer MEDICAID ==
[~2021-05-11] VITALS: Ht 175.3 cm; Wt 90.0 kg
[~2021-05-11 04:35] MED LIST changes: -DILT120C88 MT; -FURO-151; -POTA20TA82 MT; -VIC
[2021-05-11] MEDS ORDERED: FUROSEMIDE 40MG/4ML VIAL IVP ONE (05:30)
[2021-05-11 05:31] LABS: CHLORIDE 107 mEq/L (98-107)
[2021-05-11 05:33] LABS: BASOPHILS % 0.5 % (0.0-2.0); EOSINOPHILS % 4.7 % (0.0-5.0); HEMATOCRIT. 40.6 % (42.0-52.0); HEMOGLOBIN. 13.3 g/dL (14.0-18.0); MEAN CORPUSCULAR HEMOGLOBIN 29.1 pg (28.0-32.0); MEAN CORPUSCULAR VOLUME 88.8 fL (80.0-94.0); MEAN PLATELET VOLUME 8.4 fl (7.4-10.4); MONOCYTES % 6.4 % (2.0-8.0); NEUTROPHILS % 56.4 % (40.0-76.0); PLATELET 236 x1000/uL (130-400); RED BLOOD CELL COUNT 4.57 mill/uL (4.7-6.1); RED CELL DISTRIBUTION WIDTH 15.9 % (11.6-14.6)
[2021-05-11] MEDS ORDERED: ONDANSETRON HCL 4MG/2ML INJ IV PRN (11:30)
[2021-05-11] MEDS ORDERED: ACETAMINOPHEN 325MG TABLET PO PRN (11:30)
[2021-05-11 14:25] VITALS: BP 110/79
[2021-05-11] MEDS ORDERED: POTA20TA82 PO (14:26)
[2021-05-11] MEDS ORDERED: APIX5TAB PO (14:26)
[2021-05-11] MEDS ORDERED: CARV25TA47 MT (14:26)
[2021-05-11] MEDS ORDERED: DIGO125T80 MT (14:26)
[2021-05-11] MEDS ORDERED: FURO-151 MT (14:26)
[2021-05-11] MEDS ORDERED: FUROSEMIDE 40MG/4ML VIAL IVP SCH (17:00)
[2021-05-11] MEDS ORDERED: CARVEDILOL 6.25 MG TABLET PO SCH (21:00)
== END 2021-05-11 14:40 | disposition left against medical advice (07) ==
LOC: ER 04:35 → CANBEDREQ 14:40
DX: I11.0 Hypertensive heart disease with heart failure (principal); I50.9 Heart failure, unspecified; D64.9 Anemia, unspecified; I49.9 Cardiac arrhythmia, unspecified; F17.290 Nicotine dependence, other tobacco product, uncomplicated; Z79.899 Other long term (current) drug therapy; Z20.822 Contact with and (suspected) exposure to COVID-19
CPT/HCPCS: 36415; 71045; 80053; 83880; 84484; 85025; 87426; 93005; 96374; 99285; J1940

== ENCOUNTER 2021-07-06 07:36 | Emergency (ER) | payer MEDICAID ==
[~2021-07-06] VITALS: Ht 180.3 cm; Wt 120.0 kg
[~2021-07-06 07:36] MED LIST changes: +CARV25TA47 MT
[2021-07-06] MEDS ORDERED: ASPIRIN 81MG TABLET PO ONE (07:45)
[2021-07-06] MEDS ORDERED: FUROSEMIDE 40MG/4ML VIAL IV ONE (07:45)
[2021-07-06 08:25] LABS: BASOPHILS % 0.8 % (0.0-2.0); EOSINOPHILS % 2.5 % (0.0-5.0); HEMATOCRIT. 40.5 % (42.0-52.0); HEMOGLOBIN. 13.4 g/dL (14.0-18.0); LYMPHOCYTES % 20.9 % (20.0-50.0); MEAN CORPUSCULAR HEMOGLOBIN 29.2 pg (28.0-32.0); MEAN CORPUSCULAR VOLUME 88.1 fL (80.0-94.0); MEAN PLATELET VOLUME 8.4 fl (7.4-10.4); MONOCYTES % 7.2 % (2.0-8.0); NEUTROPHILS % 68.6 % (40.0-76.0); PLATELET 206 x1000/uL (130-400); RED BLOOD CELL COUNT 4.59 mill/uL (4.7-6.1); RED CELL DISTRIBUTION WIDTH 15.4 % (11.6-14.6)
[2021-07-06 08:27] LABS: CHLORIDE 109 mEq/L (98-107)
[2021-07-06 09:17] LABS: CLARITY URINE CLEAR (CLEAR); COLOR URINE YELLOW (YELLOW); KETONES URINE NEGATIVE (NEGATIVE); LEUKOCYTE ESTERASE URINE NEGATIVE (NEGATIVE); NITRITE URINE NEGATIVE (NEGATIVE); OCCULT BLOOD URINE NEGATIVE (NEGATIVE); PROTEIN URINE NEGATIVE (NEGATIVE); SPECIFIC GRAVITY URINE 1.007 (1.005-1.030); UROBILINOGEN URINE 0.2 E.U./dL (0.2-1.0)
[2021-07-06 09:37] LABS: *AMPHETAMINES SCREEN URINE PRESUMTIVE POSITIVE (NEGATIVE); *BARBITURATES SCREEN URINE NEGATIVE (NEGATIVE); *BENZODIAZEPINES SCREEN URINE NEGATIVE (NEGATIVE); *COCAINE SCREEN URINE NEGATIVE (NEGATIVE); METHADONE URINE SCREEN NEGATIVE (NEGATIVE); OPIATES URINE SCREEN NEGATIVE (NEGATIVE); PHENCYCLIDINE URINE SCREEN PRESUMTIVE POSITIVE (NEGATIVE)
[2021-07-06 09:38] LABS: CANNABINOID URINE SCREEN PRESUMTIVE POSITIVE (NEGATIVE)
[2021-07-06] MEDS ORDERED: LORAZEPAM 2MG/ML CPJ IV ONE (11:15)
[2021-07-06 12:38] VITALS: BP 141/99
[2021-07-06] MEDS ORDERED: ONDANSETRON HCL 4MG/2ML INJ IV PRN (14:00)
[2021-07-06] MEDS ORDERED: ACETAMINOPHEN 325MG TABLET PO PRN (14:00)
[2021-07-06] MEDS ORDERED: FUROSEMIDE 40MG/4ML VIAL IVP SCH (17:15)
[2021-07-06] MEDS ORDERED: CARVEDILOL 6.25 MG TABLET PO SCH (21:00)
== END 2021-07-06 14:45 | disposition left against medical advice (07) ==
LOC: ER 07:38 → EDBEDREQ 12:14 → EDBEDREQTM 12:14 → EDBEDREQ 12:15 → ER 14:45 → CANBEDREQ 15:15
DX: I50.9 Heart failure, unspecified (principal); I48.91 Unspecified atrial fibrillation; Z88.6 Allergy status to analgesic agent; Z79.899 Other long term (current) drug therapy
CPT/HCPCS: 36415; 71045; 80053; 80305; 80320; 81003; 83880; 84484; 85025; 93005; 96374; 99285; J1940; J2060; J2405; G0480